=== PATIENT | female | born 1995 | race Caucasian/White ===

== ENCOUNTER 2018-05-24 14:04 | Emergency (ER) | payer BC ==
[~2018-05-24] VITALS: Ht 165.1 cm; Wt 77.1 kg
[2018-05-24 14:38] VITALS: BP_SYST 134
--- NOTE | 2018-05-24 14:45 | NUR ---
patient arrived from home with complaints of head pain since last night. patient was drinking ETOH approx 9-10 drinks, was running to the bathroom to vomit when she fell, hitting her left arm and shoulder. patient has full ROM to extremity and equal bilateral strength. patient has a stable gait and denies dizziness upon walking/standing or quick movement. no other complaint or injury at this time.
--- NOTE | 2018-05-24 14:45 | NUR ---
patient missed flight back [place] and would like a note. md notified.
--- NOTE | 2018-05-24 14:45 | NUR ---
Patient to ER bed 05 to gown for evaluation. Side rails up.
--- NOTE | 2018-05-24 15:00 | NUR ---
ER at bedside examining patient.
[2018-05-24 15:13] VITALS: BP_SYST 122
--- NOTE | 2018-05-24 15:19 | NUR ---
Patient given written and verbal discharge instructions and verbalizes understanding. ER MD discussed with patient the results and treatment provided. Patient in stable condition. ID arm band removed. Rx of Naprosyn given. Patient educated on pain management and to follow up with PMD. Pain Scale 0/10. Opportunity for questions provided and answered. Medication side effect fact sheet provided.
== END 2018-05-24 15:19 | disposition home or self-care (01) ==
LOC: SED 14:04
DX: S09.90XA Unspecified injury of head, initial encounter (principal); F10.10 Alcohol abuse, uncomplicated; F41.9 Anxiety disorder, unspecified; W19.XXXA Unspecified fall, initial encounter; Y93.89 Activity, other specified; Y92.89 Other specified places as the place of occurrence of the external cause; Y99.8 Other external cause status
CPT/HCPCS: 99282